=== PATIENT | male | born 1980 | race Caucasian/White ===

== ENCOUNTER 2018-02-24 22:07 | Emergency (ER) | payer BC ==
[2018-02-25] MEDS ORDERED: Enoxaparin 100 MG/1 ML Syringe SUBCUT STA (00:12)
--- NOTE | 2018-02-25 00:14 | EDM.PDOC ---
ED HPI GENERAL MEDICAL PROBLEM - General Chief Complaint: Lower Extremity Injury/Pain Stated Complaint: POSS BLOOD CLOT /SWELLING IN LEFT LEG Time Seen by Provider: 02/25/18 02:18 Source of Information: Reports: Patient History Limitations: Reports: No Limitations - History of Present Illness INITIAL COMMENTS - FREE TEXT/NARRATIVE: The patient states that he has had pain to his left calf and swelling to his left lower extremity since Sunday afternoon, 02/23/2018. He has been elevating it. No recent chest pain, palpitations, or dyspnea. No lower extremity injury, and he is not sedentary. He is not known to have a hypercoagulable condition. The patient also notes that he had a weird cramping sensation in his right calf about 3 weeks ago. He simply drink more water. The patient does not have a PCP. left posterior leg/knee Pain Score (Numeric/FACES): 8 - Related Data Allergies Allergy/AdvReac Type Severity Reaction Status Date / Time No Known Allergies Allergy Verified 02/24/18 22:17 Home Meds: Home Meds Rivaroxaban [Xarelto] 1 tab PO Q12H #42 tablet 02/25/18 [Rx] Past Medical History - Past Health History Medical/Surgical History: Denies Medical/Surgical History Social & Family History - Family History Family Medical History: Noncontributory - Tobacco Use Smoking Status *Q: Never Smoker - Caffeine Use Caffeine Use: Reports: Coffee - Alcohol Use Alcohol Use History: Yes Alcohol Use Frequency: Socially - Recreational Drug Use Recreational Drug Use: No - Living Situation & Occupation Living situation: Reports: Single, with Family Occupation: Employed ([employer]) Review of Systems - Review of Systems Review Of Systems: ROS reveals no pertinent complaints other than HPI. ED EXAM, GENERAL - Physical Exam Exam: See Below Exam Limited By: No Limitations General Appearance: Alert, WD/WN, No Apparent Distress Eye Exam: Bilateral Eye: EOMI, Normal Inspection Ears: Normal External Exam, Hearing Grossly Normal Nose: Normal Inspection, No Blood Throat/Mouth: Normal Inspection, Normal Lips, Normal Voice, No Airway Compromise Head: Atraumatic, Normocephalic Neck: Normal Inspection, Full Range of Motion Respiratory/Chest: No Respiratory Distress, Lungs Clear, Normal Breath Sounds, No Accessory Muscle Use Cardiovascular: Normal Peripheral Pulses, Regular Rate, Rhythm, No Gallop, No JVD, No Murmur, No Rub Peripheral Pulses: 4+: Radial (L), Radial (R) GI/Abdominal: Normal Bowel Sounds, Soft, Non-Tender, No Organomegaly, No Distention, No Abnormal Bruit, No Mass (Male) Exam: Deferred Rectal (Males) Exam: Deferred Back Exam: Normal Inspection, Full Range of Motion, NT Extremities: Normal Range of Motion, Non-Tender, Normal Capillary Refill, Other (Modest swelling to the entire left lower extremity, when compared to the right. Neurovascular status of the left lower extremity is intact.) Neurological: Alert, Oriented, Normal Cognition, No Motor/Sensory Deficits Psychiatric: Normal Affect Skin Exam: Warm, Dry, Intact, Normal Color, No Rash Course - Vital Signs Last Recorded V/S: Last Vital Signs Temp 36.4 C 02/24/18 22:13 Pulse 105 H 02/24/18 22:13 Resp 18 02/24/18 22:13 BP 143/93 H 02/24/18 22:13 Pulse Ox 96 02/24/18 22:13 - Orders/Labs/Meds Labs: Laboratory Tests 02/24/18 02/24/18 02/24/18 Range/Units 22:38 22:38 22:38 WBC 8.41 (4.23-9.07) K/mm3 RBC 4.59 L (4.63-6.08) M/mm3 Hgb 13.6 L (13.7-17.5) gm/L Hct 39.9 L (40.1-51.0) % MCV 86.9 (79.0-92.2) fl MCH 29.6 (25.7-32.2) pg MCHC 34.1 (32.2-35.5) g/dl RDW Std Deviation 36.5 (35.1-43.9) fL Plt Count 153 L (163-337) K/mm3 MPV 9.1 L (9.4-12.3) fl Neut % (Auto) 71.7 H (34.0-67.9) % Lymph % (Auto) 17.6 L (21.8-53.1) % Antelope % (Auto) 8.3 (5.3-12.2) % Eos % (Auto) 1.9 (0.8-7.0) Baso % (Auto) 0.4 (0.1-1.2) % Neut # (Auto) 6.03 H (1.78-5.38) K/mm3 Lymph # (Auto) 1.48 (1.32-3.57) K/mm3 Antelope # (Auto) 0.70 (0.30-0.82) K/mm3 Eos # (Auto) 0.16 (0.04-0.54) K/mm3 Baso # (Auto) 0.03 (0.01-0.08) K/mm3 PT (9.5-12.1) SECONDS INR APTT (24-31) SECONDS D-Dimer, Quantitative 10.15 H (0.19-0.50) mg/L Sodium 139 (136-145) mEq/L Potassium 3.9 (3.5-5.1) mEq/L Chloride 103 (98-107) mEq/L Carbon Dioxide 26 (21-32) mEq/L Anion Gap 13.9 (5-15) BUN 14 (7-18) mg/dL Creatinine 1.0 (0.7-1.3) mg/dL Est Cr Clr Drug Dosing 108.77 mL/min Estimated GFR (MDRD) > 60 (>60) mL/min BUN/Creatinine Ratio 14.0 (14-18) Glucose 126 H (74-106) mg/dL Calcium 9.0 (8.5-10.1) mg/dL Total Bilirubin 0.4 (0.2-1.0) mg/dL AST 14 L (15-37) U/L ALT 41 (16-63) U/L Alkaline Phosphatase 110 (46-116) U/L Total Protein 7.4 (6.4-8.2) g/dl Albumin 3.0 L (3.4-5.0) g/dl Globulin 4.4 gm/dL Albumin/Globulin Ratio 0.7 L (1-2) 02/24/18 Range/Units 22:38 WBC (4.23-9.07) K/mm3 RBC (4.63-6.08) M/mm3 Hgb (13.7-17.5) gm/L Hct (40.1-51.0) % MCV (79.0-92.2) fl MCH (25.7-32.2) pg MCHC (32.2-35.5) g/dl RDW Std Deviation (35.1-43.9) fL Plt Count (163-337) K/mm3 MPV (9.4-12.3) fl Neut % (Auto) (34.0-67.9) % Lymph % (Auto) (21.8-53.1) % Antelope % (Auto) (5.3-12.2) % Eos % (Auto) (0.8-7.0) Baso % (Auto) (0.1-1.2) % Neut # (Auto) (1.78-5.38) K/mm3 Lymph # (Auto) (1.32-3.57) K/mm3 Antelope # (Auto) (0.30-0.82) K/mm3 Eos # (Auto) (0.04-0.54) K/mm3 Baso # (Auto) (0.01-0.08) K/mm3 PT 12.2 H (9.5-12.1) SECONDS INR 1.12 APTT 44 H (24-31) SECONDS D-Dimer, Quantitative (0.19-0.50) mg/L Sodium (136-145) mEq/L Potassium (3.5-5.1) mEq/L Chloride (98-107) mEq/L Carbon Dioxide (21-32) mEq/L Anion Gap (5-15) BUN (7-18) mg/dL Creatinine (0.7-1.3) mg/dL Est Cr Clr Drug Dosing mL/min Estimated GFR (MDRD) (>60) mL/min BUN/Creatinine Ratio (14-18) Glucose (74-106) mg/dL Calcium (8.5-10.1) mg/dL Total Bilirubin (0.2-1.0) mg/dL AST (15-37) U/L ALT (16-63) U/L Alkaline Phosphatase (46-116) U/L Total Protein (6.4-8.2) g/dl Albumin (3.4-5.0) g/dl Globulin gm/dL Albumin/Globulin Ratio (1-2) Meds: Medications Discontinued Medications Generic Name Dose Route Start Last Admin Trade Name Freq PRN Reason Stop Dose Admin Enoxaparin Sodium 85 mg 02/25/18 00:12 02/25/18 00:20 Lovenox SUBCUT 02/25/18 00:13 85 mg ONETIME STA Administration - Re-Assessments/Exams Free Text/Narrative Re-Assessment/Exam: 02/25/18 00:13 The patient's D-dimer has returned substantially elevated at 10.15. His CBC is remarkable for slight lymphocytopenia of 153,000. His CMP, including his renal function, is normal. I have ordered a Doppler ultrasound of the left lower extremity, but given the high likelihood of a DVT, I have ordered Lovenox 85 mg SQ. 02/25/18 01:35 Notified by the medical office technician that there appears to be extensive clot from the common femoral vein to the mid-peroneal vein, the posterior tibial vein , greater saphenous vein, and profunda vein. Formal read per the Radiologist pending. 02/25/18 02:12 Doppler ultrasound of the left lower extremity is read by [facility] as "Study positive for DVT. Large amount of occlusive thrombus." 02/25/18 02:48 Test results discussed with the patient. The patient will be discharged home with a prescription for Xarelto, 15 mg Q12h with food x 21 days, to start this morning with breakfast. The patient has been given a coupon for a free 30 day trial of Xarelto. I will refer him to Chris Flores, who can determine what long-term anticoagulant he should be on, and that his insurance company will cover. I will give the patient a note to be off work through Sunday, 2017, during which time I would like him to elevate his left lower extremity much as possible. The patient has been advised that he cannot take NSAIDs, but that he may safely take Tylenol. Departure - Departure Time of Disposition: 02:50 Disposition: Home, Self-Care 01 Condition: Good Clinical Impression: Deep vein thrombosis (DVT) of left lower extremity - Discharge Information *PRESCRIPTION DRUG MONITORING PROGRAM REVIEWED*: Not Applicable *COPY OF PRESCRIPTION DRUG MONITORING REPORT IN PATIENT ROMINA: Not Applicable Prescriptions: Rivaroxaban [Xarelto] 1 tab PO Q12H #42 tablet Instructions: Deep Vein Thrombosis Referrals: Chris Flores PA [Physician Purchasing Contracting Clerk] - Forms: ED Department Discharge, ED Return to Work/School Form Additional Instructions: You were seen in the emergency room for painful swelling of your left lower extremity. Workup in the ER included blood work and a Doppler ultrasound of your left lower extremity. The Doppler ultrasound confirmed that you have a blood clot (DVT) in the veins of your left lower extremity. You were injected with the anticoagulant Lovenox in the ER. A prescription for the anticoagulant Xarelto has been sent to the [facility] pharmacy, [address] , located [place] [address] [place] [address] from [facility]. Take one tablet every 12 hours, with food, starting this morning, 02/25/2018, as prescribed. A note to be off work until this 02/27/2018, has been provided to you. During that time, you should elevate your left lower extremity as much as possible. It is important that you NOT take an NSAID, such as aspirin, ibuprofen, or naproxen, while on Xarelto. You may safely take [id number] Tylenol as needed for discomfort. Follow-up with Chris Flores as a PCP this week, to determine what long-term anticoagulant you should be on. If any other problems, please do not hesitate to return to the ER.
--- NOTE | 2018-02-25 08:06 | US ---
Left lower extremity deep venous ultrasound: Duplex and color flow imaging was obtained of the left common femoral, proximal greater saphenous, superficial femoral, popliteal, posterior tibial and peroneal veins. Right common femoral vein was also evaluated. Comparison: No prior venous study. Findings: Intraluminal thrombus is seen within the left common femoral vein through the left popliteal vein. Clot also extends into the calf veins. Clot is also noted within the greater saphenous vein. Impression: 1. Extensive left lower extremity deep venous thrombosis. Diagnostic code #5 Agree with preliminary report issued by [facility] ([facility] preliminary report dictated on 02/25/18, 2:50 AM Central Time)
== END 2018-02-25 03:10 | disposition home or self-care (01) ==
LOC: JD.ED 22:07
DX: I82.412 Acute embolism and thrombosis of left femoral vein (principal); I82.432 Acute embolism and thrombosis of left popliteal vein
CPT/HCPCS: 36415; 80053; 85025; 85379; 85610; 85730; 93971; 96372; 99284; J1650